=== PATIENT | male | born 1965 | race Caucasian/White ===

== ENCOUNTER 2017-12-30 15:16 | Emergency (ER) | payer OTHER ==
[~2017-12-30] VITALS: Ht 165.1 cm; Wt 73.5 kg
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
[2017-12-30] MEDS ORDERED: IBUPROFEN 400 MG TABLET PO ONE (15:30)
--- NOTE | 2017-12-30 15:34 | NUR ---
DR ENGLISH AT BEDSIDE FOR EVAL.
[2017-12-30] MEDS ORDERED: IBUPROFEN 400 MG TABLET ONE (16:09)
[2017-12-30 17:38] VITALS: BP 125/84
--- NOTE | 2017-12-30 17:38 | NUR ---
Patient discharged to home in stable condition. Written and verbal after care instructions given. Patient verbalizes understanding of instruction.
== END 2017-12-30 17:39 | disposition home or self-care (01) ==
LOC: ER 15:18 → EDSEX 15:18 → ER 17:39
DX: S20.219A Contusion of unspecified front wall of thorax, initial encounter (principal); I10 Essential (primary) hypertension; E11.9 Type 2 diabetes mellitus without complications; Z95.818 Presence of other cardiac implants and grafts; V49.49XA Driver injured in collision with other motor vehicles in traffic accident, initial encounter; Y93.89 Activity, other specified; Y92.413 State road as the place of occurrence of the external cause; Y99.8 Other external cause status
CPT/HCPCS: 70450; 71045; 72125; 99284; A4606; Z7610